=== PATIENT | female | born 1955 | race Caucasian/White ===

== ENCOUNTER → 2020-07-06 | Outpatient (CLI) | payer MEDICARE ==
--- NOTE | 2020-07-06 15:08 | US ---
EXAMINATION TYPE: US carotid duplex BILAT DATE OF EXAM: 07/06/2020 COMPARISON: NONE CLINICAL HISTORY: I25.10 Atherosclerotic heart disease of [place]. EXAM MEASUREMENTS: RIGHT: Peak Systolic Velocity (PSV) cm/sec ----- Right CCA: 72.9 ----- Right ICA: 93.0 ----- Right ECA: 67.7 ICA/CCA ratio: 1.3 RIGHT: End Diastole cm/sec ----- Right CCA: 20.6 ----- Right ICA: 27.0 ----- Right ECA: 0.0 LEFT: Peak Systolic Velocity (PSV) cm/sec ----- Left CCA: 94.1 ----- Left ICA: 88.6 ----- Left ECA: 62.5 ICA/CCA ratio: 0.9 LEFT: End Diastole cm/sec ----- Left CCA: 20.4 ----- Left ICA: 18.8 ----- Left ECA: 0.0 VERTEBRALS (direction of flow): Right Vertebral: Antegrade Left Vertebral: Antegrade Rhythm: Normal No significant stenosis seen. No elevated velocities. Mild bilateral plaque. IMPRESSION: 1. Atheromatous plaquing with bilateral intimal thickening without significant flow-limiting stenosis . Criteria for Assigning % of Stenosis / Diameter reduction (Estimation based on the indirect measurements of the internal carotid artery velocities (ICA PSV). 1. Normal (no stenosis)=ICA PSV < 125 cm/s: ratio < 2.0: ICA EDV<40 cm/s. 2. Less than 50% stenosis=ICA PSV < 125 cm/s: ratio < 2.0: ICA EDV<40 cm/s. 3. 50 to 69% stenosis=ICA PSV of 125 to 230 cm/s: ration 2.0 ? 4.0: ICA EDV 40-100 cm/s. 4. Greater than 70% stenosis to near occlusion= ICA PSV > 230 cm/s: ratio > 4.0: ICA EDV > 100 cm/s. 5. Near occlusion= ICA PSV velocities may be low or undetectable: variable ratio and ICA EDV. 6. Total occlusion=unable to detect flow.
--- NOTE | 2020-07-07 17:43 | ECHOF ---
Referral Reason:I25.10 MEASUREMENTS -------- HEIGHT: 165.1 cm WEIGHT: 77.1 kg BP: RVIDd: 2.6 cm (< 3.3) IVSd: 1.0 cm (0.6 - 1.1) LVIDd: 4.1 cm (3.9 - 5.3) LVPWd: 1.4 cm (0.6 - 1.1) IVSs: 1.7 cm LVIDs: 3.2 cm LVPWs: 1.6 cm Ao Diam: 2.7 cm (2.0 - 3.7) AV Cusp: 1.5 cm (1.5 - 2.6) LA Diam: 3.2 cm (2.7 - 3.8) MV EXCURSION: 9.371 mm (> 18.000) MV EF SLOPE: 40 mm/s (70 - 150) EPSS: 0.7 cm MV E Yasmany: 0.70 m/s MV DecT: 234 ms MV A Yasmany: 0.90 m/s MV E/A Ratio: 0.78 RAP: 5.00 mmHg RVSP: 9.06 mmHg FINDINGS -------- This was a technically adequate study. The left ventricular size is normal. Left ventricular wall thickness is normal. Overall left vent ricular systolic function is low-normal with, an EF between 50 - 55 %. The right ventricle is normal in size. The left atrial size is normal. The right atrial size is normal. The aortic valve is trileaflet and appears structurally normal. The mitral valve is normal. There is trace mitral regurgitation. The tricuspid valve appears structurally normal. Trace tricuspid regurgitation present. Right moshe tricular systolic pressure is normal at < 35 mmHg. There is no pulmonic regurgitation present. The aortic root size is normal. Normal inferior vena cava with normal inspiratory collapse consistent with estimated right atrial pre ssure of 5 mmHg. There is a small, generalized pericardial effusion present. CONCLUSIONS -------- 1. The left ventricular size is normal. 2. Left ventricular wall thickness is normal. 3. Overall left ventricular systolic function is low-normal with, an EF between 50 - 55 %. 4. There is trace mitral regurgitation. 5. Trace tricuspid regurgitation present. 6. There is a small, generalized pericardial effusion present. RECTANGULAR TANK COOPER: Nova Harding RDCS
== END ==
LOC: RADECHMAIN 14:10
PROVIDERS: ATTEND Internal Medicine
DX: I65.23 Occlusion and stenosis of bilateral carotid arteries (principal); I08.1 Rheumatic disorders of both mitral and tricuspid valves; I31.3 Pericardial effusion (noninflammatory)
CPT/HCPCS: 93306; 93880

== ENCOUNTER → 2021-02-26 | Outpatient (CLI) | payer MEDICARE | LOC: CPPFTMAIN 13:18 | PROVIDERS: ATTEND Internal Medicine | DX: R06.02 Shortness of breath (principal) | CPT/HCPCS: 94060; 94726; 94729 ==

== ENCOUNTER → 2021-12-13 | Outpatient (CLI) | payer MEDICARE ==
--- NOTE | 2021-12-16 09:17 | MM ---
Reason for Exam: Screening (asymptomatic). Patient History: Menarche at age 9. Patient has no children. Left ovary removed at age 40. Right ovary removed at age 40. Hysterectomy at age 40. Postmenopausal. Sister had breast cancer under age 50. Risk Values: Harika 5 year model risk: 3.6%. NCI Lifetime model risk: 12.1%. Tissue Density: There are scattered fibroglandular densities. Findings: Analyzed By CAD. There is no suspicious group of microcalcifications or new suspicious mass in either breast. Overall Assessment: Negative, BI-RAD 1 Management: Screening Mammogram of both breasts in 1 year. A clinical breast exam by your physician is recommended on an annual basis and results should be correlated with mammographic findings. Electronically signed and approved by: Aidan Vásquez D.O.
--- NOTE | 2021-12-16 20:08 | BD ---
EXAMINATION TYPE: Axial Bone Density DATE OF EXAM: 12/13/2021 COMPARISON: NONE CLINICAL HISTORY: 65 year old Female. ICD-10 CODE: N951 POST MENOPAUSAL SYMPTOMS, M899 DISORDER OF BONE Height: 64 Weight: 165.8 FRAX RISK QUESTIONS: Alcohol (3 or more units per day): no Family History (Parent hip fracture): yes Glucocorticoids (More than 3mos): no (Ex: prednisone, prednisolone, methylprednisolone, dexamethasone, and hydrocortisone). History of Fracture in Adulthood: no Secondary Osteoporosis: 1. Type 1 Diabetes: no 2. Hyperthyroidism: no 3. Menopause before 45: no 4. Malnutrition: no 5. Chronic liver disease: no Rheumatoid Arthritis: no Current Tobacco Use:no RISK FACTORS HISTORY OF: Surgery to Spine/Hip(right/left)/Wrist (right/left): no Family History of Osteoporosis: yes Postmenopausal woman: yes Lost more than 2 inches in height since high school: no MEDICATIONS: Additional History: EXAM MEASUREMENTS: Bone mineral densitometry was performed using the [employer] System. Bone mineral density as measured about the Lumbar spine is: ----- L1-L4(G/cm2): 1.503 T Score Values are as follows: ----- L1: 0.4 ----- L2: 3.2 ----- L3: 4.3 ----- L4: 2.6 ----- L1-L4: 2.7 Bone mineral density : baseline Bone mineral density about the R hip (g/cm2): 0.980 Bone mineral density about the L hip (g/cm2): 0.994 T Score values are as follows: -----R Neck: -0.4 -----L Neck: -0.3 -----R Total: 0.2 -----L Total: 0.7 Bone mineral density : baseline FRAX%s: The graph provided illustrates a 12.8% chance for a major osteoporotic fx and a 0.7% chance f or the hips probability for fx in 10 years time. IMPRESSION: Normal (Values between +1 and -1 indicate normal bone mass). Consider repeating this study in 5 year s or sooner if there is some new clinical indication. NOTE: T-SCORE=SD OF THE YOUNG ADULT MEAN.
== END | disposition home or self-care (01) ==
LOC: RADMAMWWP 15:20
PROVIDERS: ATTEND Family Medicine
DX: Z12.31 Encounter for screening mammogram for malignant neoplasm of breast (principal); M89.9 Disorder of bone, unspecified; Z78.0 Asymptomatic menopausal state; Z80.3 Family history of malignant neoplasm of breast
CPT/HCPCS: 77063; 77067; 77080

== ENCOUNTER → 2022-08-05 | Outpatient (CLI) | payer MEDICARE ==
--- NOTE | 2022-08-05 15:58 | XR ---
EXAMINATION TYPE: XR ribs LT DATE OF EXAM: 08/05/2022 CLINICAL HISTORY: Pain, Fall Four views of the ribs fail demonstrate evidence for displaced rib fracture or secondary sign of rib fracture. Visualized lungs are clear. No evidence for pneumothorax. IMPRESSION: No displaced rib fractures seen. ICD 10 NO FRACTURE, INITIAL EVALUATION
== END | disposition home or self-care (01) ==
LOC: LABWHC1 14:54
PROVIDERS: ATTEND Family Medicine
DX: R07.82 Intercostal pain (principal)

== ENCOUNTER → 2022-08-05 | Outpatient (CLI) | payer MEDICARE ==
--- NOTE | 2022-08-06 09:54 | CA ---
Transthoracic Echo Report Name: Lorena Felder Age: 66 Gender: F : 1955 Exam Date: 08/05/2022 14:30 Exam Location: [facility] Ht (in): 65 Wt (lb): 170 Ordering Physician: Estee Arvizu MD Attending/Referring Phys: Appliance Adjuster Lena Pelletier RDCS Procedure CPT: Indications: I50.32 CHRONIC DIASTOLIC (CONGESTIVE) HEART FAILUR Cardiac Hx: Technical Quality: Fair Contrast 1: Total Dose (mL): Contrast 2: Total Dose (mL): MEASUREMENTS (Male / Female) Normal Values 2D ECHO LV Diastolic Diameter PLAX 4.6 cm 4.2 - 5.9 / 3.9 - 5.3 cm LV Systolic Diameter PLAX 2.8 cm IVS Diastolic Thickness 1.2 cm 0.6 - 1.0 / 0.6 - 0.9 cm LVPW Diastolic Thickness 1.0 cm 0.6 - 1.0 / 0.6 - 0.9 cm LV Relative Wall Thickness 0.5 RV Internal Dim ED PLAX 2.8 cm LA Volume 18.2 cm??? 18 - 58 / 22 - 52 cm??? M-MODE Aortic Root Diameter MM 2.1 cm LA Systolic Diameter MM 3.7 cm LA Ao Ratio MM 1.8 AV Cusp Separation MM 2.0 cm DOPPLER AV Peak Velocity 120.0 cm/s AV Peak Gradient 5.8 mmHg AV Mean Velocity 80.3 cm/s AV Mean Gradient 2.9 mmHg AV Velocity Time Integral 22.3 cm LVOT Peak Velocity 91.5 cm/s LVOT Peak Gradient 3.3 mmHg LVOT Velocity Time Integral 19.6 cm MV Area PHT 2.4 cm??? Mitral E Point Velocity 71.1 cm/s Mitral A Point Velocity 116.0 cm/s Mitral E to A Ratio 0.6 MV Deceleration Time 316.3 ms MV E' Velocity 6.0 cm/s Mitral E to MV E' Ratio 11.8 FINDINGS Left Ventricle Left ventricular cavity size normal. Mildly increased left ventricular wall thickness. Normal left ventricular systolic function with no obvious regional wall motion abnormalities. Left ventricular ejection fraction is estimated at 55-60 %. Right Ventricle Normal right ventricular size and function. Right ventricular systolic pressure within normal limits. Right Atrium Normal right atrial size. Left Atrium Normal left atrial size. Mitral Valve Structurally normal mitral valve. No mitral stenosis, regurgitation or prolapse. Aortic Valve No aortic valve stenosis or regurgitation. Tricuspid Valve Structurally normal tricuspid valve. Trace to mild tricuspid regurgitation. Pulmonic Valve Trace pulmonic regurgitation. Pericardium No pericardial effusion. Aorta Normal size aortic root and proximal ascending aorta. CONCLUSIONS Normal LV size and systolic function. No significant abnormality in the Doppler exam. No pericardial effusion Previewed by: Dr. Daniel Black MD (Electronically Signed) Final Date: 06 August 2022 09:53
== END | disposition home or self-care (01) ==
LOC: RADECHMAIN 14:23
PROVIDERS: ATTEND Family Medicine
DX: I50.32 Chronic diastolic (congestive) heart failure (principal)
CPT/HCPCS: 93306

== ENCOUNTER 2024-06-29 06:35 | Day surgery (SDC) | payer MEDICARE ==
[2024-06-28 08:49] VITALS: BMI 29.9
[~2024-06-29 06:35] MED LIST: TETRACAINE 0.5% OPHTH (PF) DROPS 4 ML BTL OP PRN
[2024-06-29] MEDS: CYCLOPENTOLATE 1% OPHTH SOLN 2 ML BTL OP PRN (07:01)
[2024-06-29] MEDS: PHENYLEPHRINE 2.5% OPHTH DRP 2ML OP PRN (07:05)
[2024-06-29] MEDS: IV FLUID CONTINUATION 1,000 ML IV ONE (07:10)
[2024-06-29] MEDS: LACTATED RINGERS 1,000 ML IV SCH (07:10)
[2024-06-29] MEDS: FAMOTIDINE 20 MG/2 ML VIAL IV STA (07:20)
[2024-06-29] MEDS: DEXAMETHASONE SOD PHOSPHATE 4 MG/ML 1 ML VIAL IVP STA (07:20)
[2024-06-29] MEDS: ONDANSETRON 4 MG/2 ML VIAL IVP STA (07:20)
[2024-06-29 07:26] LABS: Glucose,Whole Blood 200 mg/dL (70-110)
[2024-06-29] MEDS ORDERED: MIDAZOLAM 2 MG/2 ML VIAL ONE (07:27)
[2024-06-29] MEDS ORDERED: fentaNYL (PF) 50 MCG/ML 2 ML AMP ONE (07:27)
[2024-06-29] MEDS: SODIUM CHLORIDE 0.9% 1,000 ML IV ONE (07:29)
[2024-06-29] MEDS: EPINEPHrine (PF) 0.3 ML in BALANCED SALT IRRIG SOLN COMB2 500 ML IRRIGATION ONE (07:38)
[2024-06-29 07:39] VITALS: TEMP 97
[2024-06-29] MEDS: TIMOLOL 0.5% OPHTH DROPS 5 ML BTL OP PRN (07:39)
[2024-06-29] MEDS: HYALURONATE SODIUM INTRAOCULAR 1 EACH SYRINGE (12MG/ML) INTRAOCULA ONE (07:39)
[2024-06-29] MEDS: BALANCED SALT IRRIG SOLN COMB2 15 ML IRRIG.SOLN INTRAOCULA ONE (07:39)
[2024-06-29] MEDS: LIDOCAINE 1% (PF) 10MG/ML VIAL SQ ONE (07:39)
[2024-06-29] MEDS: MOXIFLOXACIN HCL 0.5% DROPS 3 ML BTL OP PRN (07:39)
--- NOTE | 2024-06-29 08:00 | P.OP ---
Date of Procedure: 06/29/24 Preoperative Diagnosis: NS & cS Postoperative Diagnosis: same Procedure(s) Performed: PIOL, OD Implants: [id number] 22.00 Anesthesia: MAC Surgeon: Richard Vanegas Pathology: none sent Condition: stable Disposition: same day Indications for Procedure: blurry vision Operative Findings: no complications
[2024-06-29 08:34] VITALS: BP 107/64; PULSE 77; RESP 18
--- NOTE | 2024-06-29 22:14 | OP ---
OPERATIVE REPORT DATE OF SERVICE : 06/29/2024 PREOPERATIVE DIAGNOSES: Nuclear sclerosis, cortical sclerosis. POSTOPERATIVE DIAGNOSES: Nuclear sclerosis, cortical sclerosis. OPERATION: Phacoemulsification of cataract and intraocular lens implant of the right eye. ESTIMATED BLOOD LOSS: Zero. SPECIMEN TAKEN: None. NARRATIVE: After obtaining the appropriate consent, the patient was brought to the operating room where the patient was placed under cardiac monitoring and prepped and draped in the usual sterile manner. At the 11 o'clock position, a 15-degree super sharp blade was used to create a paracentesis followed by instillation of 1% Xylocaine MPF 50:50 mix with BSS into the anterior chamber. This was followed by Amvisc viscoelastic to stabilize the anterior chamber. At the 9 o'clock position a self-sealing corneal flap incision was created using 2.8 mm vicki keratome. A cystotome was used to initiate a continuous tear capsulorrhexis which was completed with the Utrata forceps. A Binkhorst cannula was used to hydrodissect the lens nucleus followed by hydrodelineation. Phacoemulsification of the lens was performed utilizing phacochop in 13.64 seconds at 18.5% power. The remaining cortical material was removed using the irrigation aspiration mode followed by additional 1% Xylocaine MPF into the anterior chamber followed by viscoelastic to stabilize the capsular bag. A Byron and Byron, model DCB00, 22.0 diopters posterior chamber lens was placed into the capsular bag without difficulty. The remaining viscoelastic material was removed from the anterior chamber with the irrigation/aspiration. Balanced salt solution was used to normalize the intraocular pressure. The incision was checked for watertight integrity. The patient then received 2 drops of 0.5% timolol followed by 2 drops Vigamox, was lightly patched and shielded in the usual manner. There were no complications from the procedure. The patient tolerated the procedure well and was returned to recovery in good condition. MMODL / IJN: [id number] /
== END 2024-06-29 08:52 | disposition home or self-care (01) ==
LOC: OR 06:35
PROVIDERS: ATTEND Ophthalmology
DX: H25.11 Age-related nuclear cataract, right eye (principal); H25.011 Cortical age-related cataract, right eye; H00.023 Hordeolum internum right eye, unspecified eyelid; H00.026 Hordeolum internum left eye, unspecified eyelid; H53.71 Glare sensitivity; H52.03 Hypermetropia, bilateral; H52.223 Regular astigmatism, bilateral; H52.4 Presbyopia; K21.9 Gastro-esophageal reflux disease without esophagitis; E11.9 Type 2 diabetes mellitus without complications; J45.909 Unspecified asthma, uncomplicated; I25.10 Atherosclerotic heart disease of native coronary artery without angina pectoris; Z96.1 Presence of intraocular lens; Z88.8 Allergy status to other drugs, medicaments and biological substances; Z88.9 Allergy status to unspecified drugs, medicaments and biological substances; Z88.2 Allergy status to sulfonamides; Z79.4 Long term (current) use of insulin; Z79.84 Long term (current) use of oral hypoglycemic drugs; Z79.899 Other long term (current) drug therapy
CPT/HCPCS: 66984; J2250; J1100; J2405; J0171; J3010; J3490; J2003